=== PATIENT | male | born 1970 | race African-American/Black ===

== ENCOUNTER 2022-03-25 11:27 | Emergency (ER) | payer MEDICAID ==
[~2022-03-25] VITALS: Ht 188 cm; Wt 104.0 kg
[2022-03-25] MEDS ORDERED: FLUORESCEIN SODIUM 1MG/STRIP RIGHTEYE ONE (13:00)
[2022-03-25] MEDS ORDERED: ACETAMINOPHEN 325MG TABLET PO ONE (13:00)
[2022-03-25] MEDS ORDERED: BACITRACIN ZINC OINT UDPKT TOP ONE (13:00)
[2022-03-25] MEDS ORDERED: TETRACAINE 0.5% OPHTH DROPS 4ML RIGHTEYE ONE (13:00)
[2022-03-25] MEDS ORDERED: LIDOCAINE HCL/PF 1% 10 MG/ML 5ML VIAL INFIL ONE (13:00)
[2022-03-25] MEDS ORDERED: IBUPROFEN 600MG TABLET PO ONE (13:00)
[2022-03-25 13:36] VITALS: BP 135/93
== END 2022-03-25 18:43 | disposition left against medical advice (07) ==
LOC: ER 11:27
DX: S01.111A Laceration without foreign body of right eyelid and periocular area, initial encounter (principal); S05.01XA Injury of conjunctiva and corneal abrasion without foreign body, right eye, initial encounter; Y08.89XA Assault by other specified means, initial encounter; Y93.89 Activity, other specified; Y92.89 Other specified places as the place of occurrence of the external cause
CPT/HCPCS: 99284; J3490; Z7610